=== PATIENT | female | born 1980 | race Two or more races ===

== ENCOUNTER 2019-01-24 00:46 | Emergency (ER) | payer OTHER ==
[~2019-01-24] VITALS: Ht 175.3 cm; Wt 49.9 kg
== END 2019-01-24 07:30 | disposition home or self-care (01) ==
LOC: ER 00:46
DX: O20.0 Threatened abortion (principal)

== ENCOUNTER 2019-08-11 13:53 | Inpatient (IN) | payer OTHER ==
[~2019-08-11] VITALS: Ht 175.3 cm; Wt 2.7 kg
[2019-08-17] MEDS ORDERED: DHA100 MG (15:23)
== END 2019-08-22 15:05 | DRG 788 ==
LOC: EDSTATUS 08-17 13:30 → OB/GYN 08-17 13:30 → ADM 08-17 13:30 → OB/GYN 08-18 21:26 → LDR 08-18 21:26 → OB/GYN 08-19 04:55 → LDR 08-19 07:34 → OB/GYN 08-19 11:37
PROVIDERS: ADMIT Obstetrics & Gynecology
PROC: 10D00Z1 Extraction of Products of Conception, Low, Open Approach (ICD-10-PCS; principal; 2019-08-18)
PROC: 4A1HXCZ Monitoring of Products of Conception, Cardiac Rate, External Approach (ICD-10-PCS; 2019-08-18)
DX: O82 Encounter for cesarean delivery without indication (principal); Z3A.38 38 weeks gestation of pregnancy; Z37.0 Single live birth

== ENCOUNTER 2022-02-11 08:00 | Day surgery (SDC) | payer OTHER ==
[~2022-02-11 08:00] MED LIST: DHA100 MG
== END 2022-02-11 16:10 | disposition home or self-care (01) ==
LOC: CIR.AMB 08:00
PROVIDERS: ATTEND Obstetrics & Gynecology Maternal & Fetal Medicine
DX: O02.1 Missed abortion (principal); Z91.041 Radiographic dye allergy status; Z91.013 Allergy to seafood; Z20.822 Contact with and (suspected) exposure to COVID-19